=== PATIENT | female | born 1970 | race Caucasian/White ===

== ENCOUNTER 2018-08-28 08:24 | Emergency (ER) | payer MEDICAID ==
[~2018-08-28] VITALS: Ht 165.1 cm; Wt 81.8 kg
[2018-08-28 08:27] VITALS: Ht 165.1 cm; Wt 81.8 kg
[2018-08-28 09:26] LABS: BASOPHILS 0.4 % (0-2); EOSINOPHILS 1.6 % (0-7); HEMATOCRIT 40.3 % (36.0-48.0); HEMOGLOBIN 14.3 g/dL (12-16); LYMPHOCYTES 32.4 % (15-50); MCHC 35.5 g/dL (31.0-37.0); MCV 90.2 fL (80.0-100.0); MEAN PLATELET VOLUME 10.2 fL (7.4-10.4); MONOCYTES 9.4 % (2-11); NEUTROPHILS 56.2 % (40-80); PLATELET COUNT 222 10x3/uL (130-400); RBC 4.47 10x6/uL (4.00-5.40); RDW 12.3 % (11.5-14.5); WBC 5.5 10x3/uL (4.8-10.8)
[2018-08-28 09:38] LABS: ALBUMIN 3.7 g/dL (3.4-5.0); ALKALINE PHOSPHATASE 65 U/L (46-116); ALT (SGPT) 27 U/L (10-68); CALC OSMOLALITY 281 mosm/kg (275-300); CALCIUM 8.9 mg/dL (8.5-10.1); CARBON DIOXIDE 26.2 mmol/L (21.0-32.0); CHLORIDE - SERUM 107 mmol/L (98-107); CREATININE - SERUM 0.8 mg/dL (0.6-1.3); GLUCOSE 104 mg/dL (74-106); PROTEIN - SERUM 6.7 g/dL (6.4-8.2); SODIUM 142 mmol/L (136-145); UREA NITROGEN 10 mg/dL (7-18); eGFR NON AFRICAN AMERICAN 81 mL/min (90-120)
[2018-08-28 09:40] LABS: POTASSIUM - SERUM 4.1 mmol/L (3.5-5.1)
[2018-08-28 09:51] LABS: HCG SERUM NEGATIVE (NEGATIVE)
[2018-08-28 09:52] LABS: CKMB 0.9 U/L (0.0-3.6); CREATINE KINASE 95 UL (21-215); TROPONIN-I < 0.017 ng/mL (0.000-0.060)
[2018-08-28] MEDS ORDERED: MECLIZINE HCL25 MG PO (12:07)
[2018-08-28 13:30] VITALS: BP 114/87
== END 2018-08-28 13:31 | disposition home or self-care (01) ==
LOC: D.ER 08:24
PROVIDERS: Family Medicine
DX: R00.2 Palpitations (principal); F41.9 Anxiety disorder, unspecified; M79.7 Fibromyalgia